=== PATIENT | female | born 1965 | race Two or more races ===

== ENCOUNTER 2024-01-25 22:54 | Emergency (ER) | payer OTHER ==
[~2024-01-25] VITALS: Ht 162.6 cm; Wt 68.9 kg
[2024-01-25] MEDS ORDERED: AVAPRO300 MG (23:07)
[2024-01-25] MEDS ORDERED: GLUMETZA500 MG PO (23:07)
[2024-01-26] MEDS ORDERED: METHYLPREDNISOLONE SOD SUCC 125 MG VIAL IV STA (01:19)
[2024-01-26] MEDS ORDERED: IPRATROPIUM/ALBUTEROL SULFATE 3 ML AMPUL.NEB IH STA (01:20)
[2024-01-26] MEDS ORDERED: METHYLPREDNISOLONE SOD SUCC 125 MG VIAL ONE (01:23)
[2024-01-26] MEDS ORDERED: IPRATROPIUM/ALBUTEROL SULFATE 3 ML AMPUL.NEB IH ONE (01:34)
== END 2024-01-26 03:10 | disposition home or self-care (01) ==
LOC: ER 22:56
DX: J45.901 Unspecified asthma with (acute) exacerbation (principal); I10 Essential (primary) hypertension; E11.9 Type 2 diabetes mellitus without complications; Z79.84 Long term (current) use of oral hypoglycemic drugs